=== PATIENT | male | born 1955 | race Two or more races ===

== ENCOUNTER 2022-04-18 11:04 | Emergency (ER) | payer MEDICARE, MEDICAID, SELFPAY ==
--- NOTE | ~2022-04-18 | XR_ITS ---
EXAMINATION: XR hip RT 2V w AP pelvis DATE: 04/18/2022 12:34 INDICATION: Generalized right hip pain post fall TECHNIQUE: Anteroposterior view of the pelvis and anteroposterior and frog leg lateral views of the r ight hip were obtained. COMPARISON: None. FINDINGS: Alignment is normal. No fracture. Mild bilateral hip and sacroiliac osteoarthritis. Heterotopic ossic le in the right inguinal region. Soft tissues are otherwise unremarkable. IMPRESSION: 1. Mild bilateral hip and sacroiliac osteoarthritis. No acute osseous abnormality. Reviewed, dictated and finalized at location A. [employer] CONSULTANT IMPRESSION: 1. Mild bilateral hip and sacroiliac osteoarthritis. No acute osseous abnormali ty.
--- NOTE | ~2022-04-18 | XR_ITS ---
EXAMINATION: XR knee RT min 4V DATE: 04/18/2022 12:34 INDICATION: Generalized right knee pain post fall TECHNIQUE: Anteroposterior, 2 oblique and crosstable lateral views of the right knee were obtained COMPARISON: None. FINDINGS: Alignment is normal. No fracture. Joint spaces appear normal on nonweightbearing imaging. No joint e ffusion/layering lipohemarthrosis. Soft tissues are unremarkable. IMPRESSION: 1. Negative right knee radiographs. Reviewed, dictated and finalized at location A. TRICAL VARIETY AGENT
[2022-04-18 11:24] VITALS: BP 143/63; PULSE 67; RESP 14; TEMP 36.5; O2SAT 100
--- NOTE | 2022-04-18 12:56 | ED.LOWEXIN ---
HPI - Extremity Injury (Lower) General Chief Complaint: Extremity Injury, Lower Stated Complaint: fall Time Seen by Provider: 04/18/22 11:37 Source: patient and family Mode of arrival: EMS Limitations: no limitations History of Present Illness HPI Narrative: This is a 66 year old male who presents for evaluation of right knee injury s/p fall. Patient was at a local store when he slipped and fell. His family at bedside states patient almost did the splits and then he fell onto his buttocks. He did not hit his head or LOC. Patient was brought to ER by EMS after fall. He denies any other pain or injury other than right knee pain. Patient and family deny pain taking blood thinner Related Data Allergies Allergy/AdvReac Type Severity Reaction Status Date / Time No Known Allergies Allergy Verified 04/18/22 13:57 Review of Systems Review of Systems: All systems reviewed & are unremarkable except as noted in HPI and below PMFSH Past Medical History Medical History (Updated 04/18/22 @ 14:01 by Dunia Whitt MD) Heart disease Pacemaker Surgical History Surgical History (Updated 04/18/22 @ 13:00 by Dunia Whitt MD) History of permanent cardiac pacemaker placement Social History Social History (Updated 04/18/22 @ 13:00 by Dunia Whitt MD) Smoking status: Never smoker Exam Const: General: healthy appearing, no acute distress and alert Orientation/consciousness: patient oriented x3 Limitations: no limitations HENMT: Head: normal to inspection Eyes: EOM: EOMs intact bilaterally Neck: Neck: normal visual inspection Chest: Chest palpation & inspection: normal inspection of the chest Resp: Effort & Inspection: normal respiratory effort Skin: General skin exam: normal color Rashes: no rashes Wounds: no wounds Neuro: General: patient oriented x3, moves all extremities and CN's II-XI intact bilaterally Extrem: General: normal to inspection Other: no bruising, no swelling, no deformity, no tenderness Psych: Mental Status: mental status grossly normal Affect: normal affect Attitude: cooperative Course Reevaluation(s) Reevaluation #1: I Discussed with patient xray did not show acute fracture or effusion. HE was able to ambulate and bear weight. HE reports some mild knee soreness. I discussed discharge plan. Date: 04/18/22 Time: 13:59 Vital Signs Vital signs: Vital Signs Temperature 97.7 F 04/18/22 11:24 Pulse Rate 67 04/18/22 11:24 Respiratory Rate 14 04/18/22 11:24 Blood Pressure 143/63 H 04/18/22 11:24 Pulse Oximetry 100 04/18/22 11:24 Temperature 97.7 F 04/18/22 11:24 Pulse Rate 67 04/18/22 11:24 Respiratory Rate 14 04/18/22 11:24 Blood Pressure 143/63 H 04/18/22 11:24 Pulse Oximetry 100 04/18/22 11:24 MDM - Extremity Injury (Lower) Imaging Data Attestation: I personally reviewed and interpreted this imaging study as follows: Radiologist's impression: ITS Impressions Hip/Pelvis X-Ray 04/18/22 13:03 IMPRESSION: 1. Mild bilateral hip and sacroiliac osteoarthritis. No acute osseous abnormality. Knee X-Ray 04/18/22 13:05 IMPRESSION: 1. Negative right knee radiographs. Discharge Plan Discharge Clinical Impression: Right knee sprain Patient Disposition: Home, Self-Care Condition: Stable Instructions: Antibiotic Form, Knee Pain (ED) Additional Instructions: Take tylenol or ibuprofen for your pain. Follow-up/Referrals: PHYSICIAN NOT ON STAFF,NONSTAFF [Primary Care Provider] -
[2022-04-18] MEDS: ACETAMINOPHEN 325 MG TABLET 650 MG PO (13:54)
[2022-04-18] MEDS: Please add drug allergy info to patient profile. XX (13:57)
== END 2022-04-18 14:15 | disposition home or self-care (01) ==
PROVIDERS: Emergency Provider General Practice
DX: S83.91XA Sprain of unspecified site of right knee, initial encounter (principal); W01.0XXA Fall on same level from slipping, tripping and stumbling without subsequent striking against object, initial encounter; Y92.512 Supermarket, store or market as the place of occurrence of the external cause
CPT/HCPCS: 73502; 73564; 99284; A9270